=== PATIENT | male | born 1960 | race Caucasian/White ===

== ENCOUNTER 2016-12-21 08:08 | Emergency (ER) | payer SELFPAY ==
[~2016-12-21] VITALS: Ht 172.7 cm; Wt 240.0 kg
[~2016-12-21 08:08] MED LIST: ERGO500017 PO; FOLI-17 PO; LACT10SO5 PO; LEVO750T26 PO; MULT-478 PO; THIA100T10 PO; TRAM50TA2 PO; [UNRECOGNIZED DRUG - REMARK]
[2016-12-21 08:11] VITALS: BP 172/95
[2016-12-21] MEDS ORDERED: LORazepam 0.5MG TABLET PO ONE (08:30)
[2016-12-21] MEDS ORDERED: LORazepam 0.5MG TABLET ONE (08:40)
[2016-12-21 09:24] LABS: BLOOD UREA NITROGEN 7 mg/dL (7-18); DIFF TOTAL CELLS COUNTED 100 CELL DIFF
[2016-12-21 09:28] LABS: ACETAMINOPHEN < 2 mcg/mL (10-30); ANISOCYTOSIS 1+; HYPOCHROMIA 1+; MICROCYTOSIS 1+; POLYCHROMASIA 1+; VERIFY COUNTS? YES
[2016-12-21 09:29] LABS: LARGE PLATELETS 1+
[2016-12-21 13:29] LABS: DAU SCREEN DISCLAIMER
== END 2016-12-21 14:12 | disposition home or self-care (01) ==
LOC: ED 10:52
DX: F20.9 Schizophrenia, unspecified (principal); F10.259 Alcohol dependence with alcohol-induced psychotic disorder, unspecified
CPT/HCPCS: 36415; 80048; 80307; 80329; 82040; 85025; 99284; G0480